=== PATIENT | female | born 1950 | race Caucasian/White ===

== ENCOUNTER 2020-03-19 07:11 | Day surgery (SDC) | payer MEDICARE ==
[2020-03-19] MEDS: Polymyxin B/Trimethoprim 10 ML Bottle EYERT SCH ×4 (07:20→09:24)
[2020-03-19] MEDS: Brimonidine 0.2% Ophth Soln 5 ML Bottle EYERT SCH ×4 (07:25→09:24)
[2020-03-19] MEDS: Phenylephrine 2.5% Ophth Soln 2 ML Bot EYERT SCH ×5 (07:30→09:03)
[2020-03-19] MEDS: Tropicamide 1% Ophth Soln 15 ML Bottle EYERT SCH ×4 (07:35→08:35)
[2020-03-19] MEDS: Tetracaine HCl/PF 0.5% 4 ML Bottle EYEBOTH SCH ×5 (07:41→09:11)
[2020-03-19] MEDS: Lidocaine 1% PF 2 ML SDV INJECT SCH ×2 (07:41→09:12)
[2020-03-19] MEDS: Cefuroxime 10 MG/ML SYRINGE EYERT SCH ×2 (07:41→09:23)
--- NOTE | 2020-03-19 07:41 | PCM.PREANE ---
Preanesthetic Assessment - Procedure Proposed Procedure: right cataract - Anesthesia/Transfusion/Family Hx Anesthesia History: Prior Anesthesia Without Reaction Family History of Anesthesia Reaction: No Transfusion History: No Prior Transfusion(s) - Review of Systems General: No Symptoms Pulmonary: No Symptoms Cardiovascular: No Symptoms Gastrointestinal: No Symptoms Neurological: No Symptoms Other: Reports: Depression - Physical Assessment NPO Status Date: 03/18/20 NPO Status Time: 23:00 Vital Signs: 142/68 63 94% 16 97.8 Height: 5 ft Weight: 52.163 kg ASA Class: 2 Mental Status: Alert & Oriented x3 Airway Class: Mallampati = 1 Dentition: Reports: Normal Dentition Thyro-Mental Finger Breadths: 3 Mouth Opening Finger Breadths: 3 ROM/Head Extension: Full Lungs: Clear to Auscultation, Normal Respiratory Effort Cardiovascular: Regular Rate, Regular Rhythm - Allergies Allergies/Adverse Reactions: Allergies Allergy/AdvReac Type Severity Reaction Status Date / Time No Known Allergies Allergy Verified 03/18/20 13:14 - Blood Blood Available: No - Acknowledgements Anesthesia Type Planned: MAC Pt an Appropriate Candidate for the Planned Anesthesia: Yes Alternatives and Risks of Anesthesia Discussed w Pt/Guardian: Yes Pt/Guardian Understands and Agrees with Anesthesia Plan: Yes PreAnesthesia Questionnaire Cardiovascular History: Reports: High Cholesterol Gastrointestinal History: Reports: GERD Musculoskeletal History: Reports: Back Pain, Chronic Psychiatric History: Reports: Depression - Past Surgical History Female Surgical History: Reports: Hysterectomy - SUBSTANCE USE Tobacco Use Status *Q: Former Tobacco User Tobacco Use Within Last Twelve Months: No Second Hand Smoke Exposure: No Days Per Week of Alcohol Use: 0 Recreational Drug Use History: No - HOME MEDS Home Medications: Home Meds Alendronate Sodium [Fosamax] 70 mg PO Q7D 03/18/20 [History] Calcium Carb/Vitamin D3/Vit K1 [Calcium + D Soft Chewable Tab] 1 tab PO DAILY 03/18/20 [History] Cholecalciferol (Vitamin D3) [Vitamin D3] 5,000 unit PO DAILY 03/18/20 [History] Escitalopram Oxalate [Lexapro] 20 mg PO DAILY 03/18/20 [History] Famotidine 20 mg PO BID 03/18/20 [History] Magnesium Oxide [Magnesium] 400 mg PO DAILY 03/18/20 [History] Mirtazapine 30 mg PO BEDTIME 03/18/20 [History] Rosuvastatin [Crestor] 10 mg PO DAILY 03/18/20 [History] buPROPion HCL [Wellbutrin Xl] 150 mg PO DAILY 03/18/20 [History] traMADol HCl [Tramadol HCl] 50 - 100 mg PO Q6H PRN 03/18/20 [History] traZODone HCl [Trazodone HCl] 100 mg PO BEDTIME 03/18/20 [History] - CURRENT (IN HOUSE) MEDS Current Meds: Current Medications Brimonidine Tartrate (Alphagan 0.2% Ophth Soln) 0 ml EYERT ASDIRECTED BENJAMIN Stop: 03/19/20 18:00 Last Admin: 03/19/20 07:25 Dose: 1 drop Documented by: Cefuroxime Sodium (Zinacef) 0 mg EYERT ASDIRECTED BENJAMIN Stop: 03/19/20 18:00 Lidocaine HCl (Xylocaine-Mpf 1%) 0 ml INJECT ASDIRECTED BENJAMIN Stop: 03/19/20 18:00 Phenylephrine HCl (Gigi-Synephrine 2.5% Ophth Soln) 0 ml EYERT ASDIRECTED BENJAMIN Stop: 03/19/20 18:00 Last Admin: 03/19/20 07:30 Dose: 1 drop Documented by: Pilocarpine HCl (Pilocar 4% Ophth Soln) 0 ml EYERT ASDIRECTED BENJAMIN Stop: 03/19/20 18:00 Polymyxin/Trimethoprim Sulfate (Polytrim Ophth Soln) 0 ml EYERT ASDIRECTED BENJAMIN Stop: 03/19/20 18:00 Last Admin: 03/19/20 07:20 Dose: 1 drop Documented by: Tetracaine HCl (Tetracaine 0.5% Steri-Unit Jo-Ann) 0 ml EYEBOTH ASDIRECTED BENJAMIN Stop: 03/19/20 18:00 Tropicamide (Mydriacyl 1% Ophth Soln) 0 ml EYERT ASDIRECTED BENJAMIN Stop: 03/19/20 18:00 Last Admin: 03/19/20 07:35 Dose: 1 drop Documented by:
[2020-03-19] MEDS: Pilocarpine 4% Ophth Soln 15 ML Bot EYERT SCH ×2 (07:42→09:24)
--- NOTE | 2020-03-19 09:27 | PCM48HPAN ---
Post Anesthesia Note - EVALUATION WITHIN 48HRS OF ANESTHETIC Vital Signs in Normal Range: Yes Patient Participated in Evaluation: Yes Respiratory Function Stable: Yes Airway Patent: Yes Cardiovascular Function Stable: Yes Hydration Status Stable: Yes Pain Control Satisfactory: Yes Nausea and Vomiting Control Satisfactory: Yes Mental Status Recovered: Yes Vital Signs: Last Vital Signs Temp 36.6 C 03/19/20 07:15 Pulse 63 03/19/20 07:15 Resp 16 03/19/20 07:15 BP 142/68 H 03/19/20 07:15 Pulse Ox 94 L 03/19/20 07:15
== END 2020-03-19 09:35 | disposition home or self-care (01) ==
LOC: JD.SDS 07:11
PROVIDERS: ATTEND Ophthalmology
DX: H25.813 Combined forms of age-related cataract, bilateral (principal); F32.9 Major depressive disorder, single episode, unspecified; H43.811 Vitreous degeneration, right eye; H18.453 Nodular corneal degeneration, bilateral; H02.831 Dermatochalasis of right upper eyelid; H02.834 Dermatochalasis of left upper eyelid; H16.223 Keratoconjunctivitis sicca, not specified as Sjogren's, bilateral; Z98.890 Other specified postprocedural states; Z87.891 Personal history of nicotine dependence; Z79.899 Other long term (current) drug therapy
CPT/HCPCS: 66984; J0697; J2001; V2632

== ENCOUNTER 2020-04-16 08:26 | Day surgery (SDC) | payer MEDICARE ==
[~2020-04-16 08:26] MED LIST: Cefuroxime 10 MG/ML SYRINGE EYELF SCH; Lidocaine 1% PF 2 ML SDV INJECT SCH; Pilocarpine 4% Ophth Soln 15 ML Bot EYELF SCH
[2020-04-16] MEDS: Polymyxin B/Trimethoprim 10 ML Bottle EYELF SCH ×3 (08:27→10:12)
[2020-04-16] MEDS: Brimonidine 0.2% Ophth Soln 5 ML Bottle EYELF SCH ×3 (08:35→10:12)
[2020-04-16] MEDS: Phenylephrine 2.5% Ophth Soln 2 ML Bot EYELF SCH ×5 (08:40→09:42)
[2020-04-16] MEDS: Tropicamide 1% Ophth Soln 15 ML Bottle EYELF SCH ×4 (08:45→09:22)
--- NOTE | 2020-04-16 08:50 | PCM.PREANE ---
Preanesthetic Assessment - Procedure Proposed Procedure: Cataract Extraction to Left Eye with IOL - Anesthesia/Transfusion/Family Hx Anesthesia History: Prior Anesthesia Without Reaction Family History of Anesthesia Reaction: No Transfusion History: No Prior Transfusion(s) - Review of Systems General: No Symptoms Pulmonary: No Symptoms (Former Smoker, Quit July of 2019. ) Cardiovascular: No Symptoms Gastrointestinal: No Symptoms Neurological: Numbness, Pre-Existing Deficit Other: Reports: Depression - Physical Assessment NPO Status Date: 04/15/20 NPO Status Time: 18:00 Weight: 52.163 kg ASA Class: 2 Mental Status: Alert & Oriented x3 Airway Class: Mallampati = 2 Dentition: Reports: Dentures Thyro-Mental Finger Breadths: 2 Mouth Opening Finger Breadths: 3 ROM/Head Extension: Full Lungs: Clear to Auscultation, Normal Respiratory Effort Cardiovascular: Regular Rate, Regular Rhythm - Allergies Allergies/Adverse Reactions: Allergies Allergy/AdvReac Type Severity Reaction Status Date / Time Iodine and Iodide Containing Allergy Hives Verified 04/15/20 16:16 Produc - Acknowledgements Anesthesia Type Planned: MAC Pt an Appropriate Candidate for the Planned Anesthesia: Yes Alternatives and Risks of Anesthesia Discussed w Pt/Guardian: Yes Pt/Guardian Understands and Agrees with Anesthesia Plan: Yes PreAnesthesia Questionnaire Cardiovascular History: Reports: High Cholesterol Gastrointestinal History: Reports: GERD Musculoskeletal History: Reports: Back Pain, Chronic Psychiatric History: Reports: Depression - Past Surgical History Female Surgical History: Reports: Hysterectomy - HOME MEDS Home Medications: Home Meds Alendronate Sodium [Fosamax] 70 mg PO Q7D 03/18/20 [History] Calcium Carb/Vitamin D3/Vit K1 [Calcium + D Soft Chewable Tab] 1 tab PO DAILY 03/18/20 [History] Cholecalciferol (Vitamin D3) [Vitamin D3] 5,000 unit PO DAILY 03/18/20 [History] Escitalopram Oxalate [Lexapro] 20 mg PO DAILY 03/18/20 [History] Famotidine 20 mg PO BID 03/18/20 [History] Magnesium Oxide [Magnesium] 400 mg PO DAILY 03/18/20 [History] Mirtazapine 30 mg PO BEDTIME 03/18/20 [History] Rosuvastatin [Crestor] 10 mg PO DAILY 03/18/20 [History] buPROPion HCL [Wellbutrin Xl] 150 mg PO DAILY 03/18/20 [History] traMADol HCl [Tramadol HCl] 50 - 100 mg PO Q6H PRN 03/18/20 [History] traZODone HCl [Trazodone HCl] 100 mg PO BEDTIME 03/18/20 [History] - CURRENT (IN HOUSE) MEDS Current Meds: Current Medications Brimonidine Tartrate (Alphagan 0.2% Ophth Soln) 0 ml EYELF ASDIRECTED BENJAMIN Stop: 04/16/20 18:00 Last Admin: 04/16/20 08:35 Dose: 1 drop Documented by: Cefuroxime Sodium (Zinacef) 0 mg EYELF ASDIRECTED BENJAMIN Stop: 04/16/20 18:00 Lidocaine HCl (Xylocaine-Mpf 1%) 0 ml INJECT ASDIRECTED BENJAMIN Stop: 04/16/20 18:00 Phenylephrine HCl (Gigi-Synephrine 2.5% Ophth Soln) 0 ml EYELF ASDIRECTED BENJAMIN Stop: 04/16/20 18:00 Last Admin: 04/16/20 08:40 Dose: 1 drop Documented by: Pilocarpine HCl (Pilocar 4% Ophth Soln) 0 ml EYELF ASDIRECTED BENJAMIN Stop: 04/16/20 18:00 Polymyxin/Trimethoprim Sulfate (Polytrim Ophth Soln) 0 ml EYELF ASDIRECTED BENJAMIN Stop: 04/16/20 18:00 Last Admin: 04/16/20 08:27 Dose: 1 drop Documented by: Tetracaine HCl (Tetracaine 0.5% Steri-Unit Jo-Ann) 0 ml EYEBOTH ASDIRECTED BENJAMIN Stop: 04/16/20 18:00 Tropicamide (Mydriacyl 1% Ophth Soln) 0 ml EYELF ASDIRECTED BENJAMIN Stop: 04/16/20 18:00 Last Admin: 04/16/20 08:45 Dose: 1 drop Documented by:
[2020-04-16] MEDS: Tetracaine HCl/PF 0.5% 4 ML Bottle EYEBOTH SCH ×4 (09:27→09:48)
--- NOTE | 2020-04-16 09:50 | PCM48HPAN ---
Post Anesthesia Note - EVALUATION WITHIN 48HRS OF ANESTHETIC Vital Signs in Normal Range: Yes Patient Participated in Evaluation: Yes Respiratory Function Stable: Yes Airway Patent: Yes Cardiovascular Function Stable: Yes Hydration Status Stable: Yes Pain Control Satisfactory: Yes Nausea and Vomiting Control Satisfactory: Yes Mental Status Recovered: Yes Vital Signs: Last Vital Signs Temp 36.4 C 04/16/20 08:25 Pulse 56 L 04/16/20 08:25 Resp 16 04/16/20 08:25 BP 143/63 H 04/16/20 08:25 Pulse Ox 93 L 04/16/20 08:25
== END 2020-04-16 10:20 | disposition home or self-care (01) ==
LOC: JD.SDS 08:26
PROVIDERS: ATTEND Ophthalmology
DX: H25.813 Combined forms of age-related cataract, bilateral (principal); H43.811 Vitreous degeneration, right eye; H18.453 Nodular corneal degeneration, bilateral; H02.831 Dermatochalasis of right upper eyelid; H02.834 Dermatochalasis of left upper eyelid; H16.103 Unspecified superficial keratitis, bilateral; H16.223 Keratoconjunctivitis sicca, not specified as Sjogren's, bilateral; F32.9 Major depressive disorder, single episode, unspecified; Z87.891 Personal history of nicotine dependence; Z79.899 Other long term (current) drug therapy
CPT/HCPCS: 66984; C1780; J0697; J2001

== ENCOUNTER 2020-10-16 15:14 | Emergency (ER) | payer MEDICARE, OTHER ==
[2020-10-16] MEDS ORDERED: Sodium Chloride 0.9% 10 ML Syringe FLUSH PRN (15:45)
--- NOTE | 2020-10-16 17:02 | CR ---
Chest: 2 views of the chest were obtained. Comparison: No prior chest x-ray is available, study is compared to prior lung screening protocol CT of 11/05/16. Heart size and mediastinum are within normal limits. Questionable bronchitis is noted throughout the right lung. Lungs otherwise are clear. Scoliosis and degenerative change is noted within the spine. Impression: 1. Possible diffuse right-sided bronchitis. Please correlate with the patient's symptoms. 2. Scoliosis and degenerative change within the spine. Diagnostic code #3
--- NOTE | 2020-10-16 17:04 | EDM.PDOC ---
ED HPI GENERAL MEDICAL PROBLEM - General Chief Complaint: Gastrointestinal Problem Stated Complaint: NEED FLUIDS Time Seen by Provider: 10/16/20 15:35 Source of Information: Reports: Patient, RN Notes Reviewed History Limitations: Reports: No Limitations - History of Present Illness INITIAL COMMENTS - FREE TEXT/NARRATIVE: Patient is a 69-year-old female presenting to the emergency department with concerns that she may need some IV fluids. She was diagnosed as Covid positive on October 02 and reports that she has had intermittent vomiting and diarrhea since that time. She states that she does not vomit or have diarrhea every day but she has had it occasionally. She denies any respiratory complaints or fevers. She does not have a cough or feel short of breath. Denies dizziness upon standing. She was seen at the [place] [facility] prior to coming here and they sent her here for IV fluids. On triage, oxygen saturations was found to be slightly low at 93%, however review of her previous visits indicate that this is her normal oxygen saturation. Vital signs are otherwise normal. Blood pressure 115/71, pulse rate 53, temperature 99.0, respiratory rate 18. - Related Data Allergies Allergy/AdvReac Type Severity Reaction Status Date / Time Iodine and Iodide Containing Allergy Hives Verified 10/16/20 15:23 Produc Home Meds: Home Meds Alendronate Sodium [Fosamax] 70 mg PO Q7D 03/18/20 [History] Calcium Carb/Vitamin D3/Vit K1 [Calcium + D Soft Chewable Tab] 1 tab PO DAILY 03/18/20 [History] Cholecalciferol (Vitamin D3) [Vitamin D3] 5,000 unit PO DAILY 03/18/20 [History] Escitalopram Oxalate [Lexapro] 20 mg PO DAILY 03/18/20 [History] Famotidine 20 mg PO BID 03/18/20 [History] Magnesium Oxide [Magnesium] 400 mg PO DAILY 03/18/20 [History] Mirtazapine 30 mg PO BEDTIME 03/18/20 [History] Rosuvastatin [Crestor] 10 mg PO DAILY 03/18/20 [History] buPROPion HCL [Wellbutrin Xl] 150 mg PO DAILY 03/18/20 [History] traMADol HCl [Tramadol HCl] 50 - 100 mg PO Q6H PRN 03/18/20 [History] traZODone HCl [Trazodone HCl] 100 mg PO BEDTIME 03/18/20 [History] Ondansetron [Zofran ODT] 4 mg PO Q6H PRN #10 tab.dis 10/16/20 [Rx] Past Medical History - Past Health History Medical/Surgical History: Denies Medical/Surgical History Cardiovascular History: Reports: High Cholesterol Gastrointestinal History: Reports: GERD Musculoskeletal History: Reports: Back Pain, Chronic Psychiatric History: Reports: Depression - Past Surgical History Female Surgical History: Reports: Hysterectomy Social & Family History - Tobacco Use Tobacco Use Status *Q: Never Tobacco User - Recreational Drug Use Recreational Drug Use: No ED ROS GENERAL - Review of Systems Review Of Systems: See Below Constitutional: Reports: No Symptoms. Denies: Fever, Chills, Weakness HEENT: Reports: No Symptoms Respiratory: Reports: No Symptoms Cardiovascular: Reports: No Symptoms Endocrine: Reports: No Symptoms GI/Abdominal: Reports: Diarrhea, Nausea, Vomiting. Denies: Abdominal Pain : Reports: No Symptoms. Denies: Dysuria Musculoskeletal: Reports: No Symptoms Skin: Reports: No Symptoms Neurological: Reports: No Symptoms Psychiatric: Reports: No Symptoms Hematologic/Lymphatic: Reports: No Symptoms Immunologic: Reports: No Symptoms ED EXAM, GI/ABD - Physical Exam Exam: See Below Exam Limited By: No Limitations General Appearance: Alert, WD/WN, No Apparent Distress Respiratory/Chest: No Respiratory Distress, Lungs Clear, Normal Breath Sounds, No Accessory Muscle Use, Chest Non-Tender Cardiovascular: Normal Peripheral Pulses, Regular Rate, Rhythm, No Edema, No Gallop, No JVD, No Murmur, No Rub GI/Abdominal Exam: Normal Bowel Sounds, Soft, Non-Tender, No Organomegaly, No Distention, No Abnormal Bruit, No Mass, Pelvis Stable Neurological: Alert, Oriented, CN II-XII Intact, Normal Cognition, Normal Gait, Normal Reflexes, No Motor/Sensory Deficits Psychiatric: Normal Affect, Normal Mood Skin Exam: Warm, Dry, Intact, Normal Color, No Rash Course - Vital Signs Last Recorded V/S: Last Vital Signs Temp 99 F 10/16/20 15:21 Pulse 53 L 10/16/20 15:21 Resp 18 10/16/20 15:21 BP 115/71 10/16/20 15:21 Pulse Ox 92 L 10/16/20 15:51 Orthostatic Blood Pressure [ 105/68 Standing] Orthostatic Blood Pressure [ 104/72 Sitting] Orthostatic Blood Pressure [ 109/68 Supine] - Orders/Labs/Meds Orders: Active Orders 24 hr Category Date Time Status Peripheral IV Insertion Adult [OM.PC] Stat Oth 10/16/20 15:45 Ordered Labs: Laboratory Tests 10/16/20 10/16/20 10/16/20 Range/Units 16:59 16:59 16:59 WBC 3.78 L (3.98-10.04) K/mm3 RBC 4.34 (3.98-5.22) M/mm3 Hgb 11.7 (11.2-15.7) gm/dl Hct 36.8 (34.1-44.9) % MCV 84.8 D (79.4-94.8) fl MCH 27.0 (25.6-32.2) pg MCHC 31.8 L (32.2-35.5) g/dl RDW Std Deviation 42.1 (36.4-46.3) fL Plt Count 443 H D (182-369) K/mm3 MPV 9.2 L (9.4-12.3) fl Neut % (Auto) 76.7 H (34.0-71.1) % Lymph % (Auto) 11.1 L (19.3-51.7) % [place] % (Auto) 6.1 (4.7-12.5) % Eos % (Auto) 0.3 L (0.7-5.8) Baso % (Auto) 0.5 (0.1-1.2) % Neut # (Auto) 2.90 (1.56-6.13) K/mm3 Lymph # (Auto) 0.42 L (1.18-3.74) K/mm3 [place] # (Auto) 0.23 L (0.24-0.36) K/mm3 Eos # (Auto) 0.01 L (0.04-0.36) K/mm3 Baso # (Auto) 0.02 (0.01-0.08) K/mm3 Manual Slide Review Abnormal smear Sodium 140 (136-145) mEq/L Potassium 4.0 (3.5-5.1) mEq/L Chloride 101 (98-107) mEq/L Carbon Dioxide 27 (21-32) mEq/L Anion Gap 16.0 H (5-15) BUN 20 H (7-18) mg/dL Creatinine 1.0 (0.55-1.02) mg/dL Est Cr Clr Drug Dosing 37.06 mL/min Estimated GFR (MDRD) 55 (>60) mL/min BUN/Creatinine Ratio 20.0 H (14-18) Glucose 89 (70-99) mg/dL Calcium 8.7 (8.5-10.1) mg/dL Magnesium 1.8 (1.8-2.4) mg/dL Total Bilirubin 0.4 (0.2-1.0) mg/dL AST 134 H (15-37) U/L ALT 42 (14-59) U/L Alkaline Phosphatase 92 (46-116) U/L Total Protein 7.5 (6.4-8.2) g/dl Albumin 2.9 L (3.4-5.0) g/dl Globulin 4.6 gm/dL Albumin/Globulin Ratio 0.6 L (1-2) Meds: Medications Discontinued Medications Generic Name Dose Route Start Last Admin Trade Name Freq PRN Reason Stop Dose Admin Sodium Chloride 10 ml 10/16/20 15:45 Sodium Chloride 0.9% 10 Ml Syringe FLUSH ASDIRECTED PRN Keep Vein Open - Re-Assessments/Exams Free Text/Narrative Re-Assessment/Exam: 10/16/20 18:13 Hematology was significant for WBC slightly low at 3.78, anion gap minimally elevated at 16.0, BUN 20, AST 134. Blood work was otherwise unremarkable. Chest x-ray shows possible bronchitis if her symptoms correlate. Patient has had no cough,shortness of breath, or wheezing. Discussed with patient that she is mildly dehydrated. Discussed possibility of IV fluids, however she has not been vomiting today and she would just like to pursue oral intake. I will write a prescription for Zofran for nausea. Recommend Gatorade and Powerade for a oral rehydration. Discussed return precautions. Discharge instructions as documented. Departure - Departure Time of Disposition: 18:13 Disposition: Home, Self-Care 01 Condition: Good Clinical Impression: Vomiting, Diarrhea - Discharge Information *PRESCRIPTION DRUG MONITORING PROGRAM REVIEWED*: No *COPY OF PRESCRIPTION DRUG MONITORING REPORT IN PATIENT ASIA: No Prescriptions: Ondansetron [Zofran ODT] 4 mg PO Q6H PRN #10 tab.dis PRN Reason: Nausea/Vomiting Instructions: Nausea and Vomiting, Adult, [id number] Referrals: Ben Cantor MD [Primary Care Provider] - Forms: ED Department Discharge Additional Instructions: You were seen in the emergency department today for evaluation with regards to intermittent vomiting and diarrhea since your Covid diagnosis on October 02. Blood work was completed. You were very mildly dehydrated. Your electrolytes are normal. IV fluids were offered, however since you are not vomiting today you elected to pursue oral rehydration. Recommend Gatorade and Powerade for fluid replacement. I have sent a prescription for Zofran for nausea to your pharmacy. Use this as prescribed for nausea. If you should experience any new or worsening symptoms, please do not hesitate to return to the ER for reevaluation. Sepsis Event Note (ED) - Evaluation Sepsis Screening Result: No Definite Risk - Focused Exam Vital Signs: Vital Signs Temp Pulse Resp BP Pulse Ox Pulse Ox 10/16/20 15:51 92 L 10/16/20 15:21 99 F 53 L 18 115/71 93 L - My Orders Last 24 Hours: My Active Orders 10/16/20 15:45 Peripheral IV Insertion Adult [OM.PC] Stat - Assessment/Plan Last 24 Hours: My Active Orders 10/16/20 15:45 Peripheral IV Insertion Adult [OM.PC] Stat
== END 2020-10-16 18:20 | disposition home or self-care (01) ==
LOC: JD.ED 15:14
DX: R11.2 Nausea with vomiting, unspecified (principal); R19.7 Diarrhea, unspecified; Z91.041 Radiographic dye allergy status
CPT/HCPCS: 36415; 71046; 71046-26; 80053; 83735; 85025; 99283; 99284-25

== ENCOUNTER 2021-06-18 09:59 | Day surgery (SDC) | payer MEDICARE, OTHER ==
[~2021-06-18 09:59] MED LIST changes: -Cefuroxime 10 MG/ML SYRINGE EYELF SCH; +Lactated Ringers 1,000 ML IV SCH; -Lidocaine 1% PF 2 ML SDV INJECT SCH; +Lidocaine 1%/Sod Bicarbonate in NS 8.4% 1 ML Syringe IDERM PRN; -Pilocarpine 4% Ophth Soln 15 ML Bot EYELF SCH; +Sodium Chloride 0.9% 10 ML Syringe FLUSH SCH
[2021-06-18] MEDS ORDERED: Bupivacaine 0.25% 10 ML SDV ONE (11:21)
[2021-06-18] MEDS ORDERED: Lidocaine 1% 30 ML SDV ONE (11:21)
[2021-06-18] MEDS ORDERED: fentaNYL 100 MCG/2 ML SDV ONE (12:00)
[2021-06-18] MEDS ORDERED: Propofol 200 MG/20 ML SDV ONE (12:00)
[2021-06-18] MEDS ORDERED: Lidocaine 1% 4 ML ONE (12:01)
== END 2021-06-18 13:40 | disposition home or self-care (01) ==
LOC: JD.SDS 09:59
PROVIDERS: ATTEND Orthopaedic Surgery
DX: G56.11 Other lesions of median nerve, right upper limb (principal); G56.01 Carpal tunnel syndrome, right upper limb; E78.00 Pure hypercholesterolemia, unspecified; M81.0 Age-related osteoporosis without current pathological fracture; K21.9 Gastro-esophageal reflux disease without esophagitis; G25.81 Restless legs syndrome; Z79.899 Other long term (current) drug therapy; Z88.8 Allergy status to other drugs, medicaments and biological substances; Z98.890 Other specified postprocedural states; Z87.891 Personal history of nicotine dependence
CPT/HCPCS: 64721; J2704; J3010; J3490; J7120; 01810; 99100

== ENCOUNTER 2021-07-31 10:58 | Day surgery (SDC) | payer MEDICARE, OTHER ==
[~2021-07-31 10:58] MED LIST changes: +Sodium Chloride 0.9% 10 ML Syringe FLUSH PRN
[2021-07-31] MEDS ORDERED: Bupivacaine 0.25% 10 ML SDV ONE (11:02)
[2021-07-31] MEDS ORDERED: Lidocaine 1% 30 ML SDV ONE (11:02)
[2021-07-31] MEDS ORDERED: Lidocaine 1% 4 ML ONE (11:24)
[2021-07-31] MEDS ORDERED: fentaNYL 100 MCG/2 ML SDV ONE (11:25)
[2021-07-31] MEDS ORDERED: Propofol 200 MG/20 ML SDV ONE (11:25)
== END 2021-07-31 12:55 | disposition home or self-care (01) ==
LOC: JD.SDS 10:58
PROVIDERS: ATTEND Orthopaedic Surgery
DX: G56.12 Other lesions of median nerve, left upper limb (principal); G56.02 Carpal tunnel syndrome, left upper limb; M81.0 Age-related osteoporosis without current pathological fracture; E78.00 Pure hypercholesterolemia, unspecified; Z87.891 Personal history of nicotine dependence; Z98.890 Other specified postprocedural states; Z88.8 Allergy status to other drugs, medicaments and biological substances; Z79.899 Other long term (current) drug therapy
CPT/HCPCS: 64721; J2704; J3010; J3490; J7120; 01810; 99100

== ENCOUNTER 2022-07-10 17:27 | Observation (INO) | payer MEDICARE ==
[2022-07-10] MEDS ORDERED: Morphine 4 MG/ML Syringe IVPUSH ONE (18:41)
[2022-07-10] MEDS ORDERED: Piperacillin/Tazobactam 4.5 GM in Sodium Chloride 0.9% 100 ML IV ONE (18:41)
[2022-07-10] MEDS ORDERED: Sodium Chloride 0.9% 1,000 ML IV ONE (18:41)
[2022-07-10] MEDS ORDERED: Lidocaine 1% 30 ML SDV ONE (19:57)
[2022-07-10] MEDS ORDERED: Bupivacaine 0.5%/EPINEPHrine 1:200,000 50 ML MDV ONE (19:57)
[2022-07-10] MEDS ORDERED: fentaNYL 100 MCG/2 ML SDV IVPUSH PRN (20:00)
[2022-07-10] MEDS ORDERED: Ondansetron 4 MG/2 ML SDV IVPUSH PRN ×2 (20:00→22:19)
[2022-07-10] MEDS ORDERED: HYDROmorphone 0.5 MG/0.5 ML Syringe IVPUSH PRN ×2 (20:00→22:21)
[2022-07-10] MEDS ORDERED: Lidocaine 1% 2 ML ONE (20:08)
[2022-07-10] MEDS ORDERED: Ondansetron 4 MG/2 ML SDV ONE (20:08)
[2022-07-10] MEDS ORDERED: Rocuronium 50 MG/5 ML Vial ONE (20:08)
[2022-07-10] MEDS ORDERED: Ketorolac 15 MG/ML SDV ONE (20:08)
[2022-07-10] MEDS ORDERED: Propofol 200 MG/20 ML SDV ONE (20:08)
[2022-07-10] MEDS ORDERED: fentaNYL 100 MCG/2 ML SDV ONE (20:09)
[2022-07-10] MEDS ORDERED: Sugammadex Sodium 200 MG/2 ML VIAL ONE (21:04)
[2022-07-10] MEDS ORDERED: oxyCODONE 5 MG Tab PO PRN (22:20)
[2022-07-10] MEDS ORDERED: Acetaminophen 325 MG Tab PO PRN (22:28)
[2022-07-10] MEDS ORDERED: Sodium Chloride 0.9% 1,000 ML IV SCH (22:30)
[2022-07-10] MEDS: Piperacillin/Tazobactam 4.5 GM in Sodium Chloride 0.9% 100 ML IV SCH (23:36)
[2022-07-11] MEDS ORDERED: Enoxaparin 30 MG/0.3 ML Syringe SUBCUT SCH (09:00)
[2022-07-11] MEDS: Piperacillin/Tazobactam 4.5 GM in Sodium Chloride 0.9% 100 ML IV SCH (09:09)
== END 2022-07-11 12:24 | disposition home or self-care (01) ==
LOC: JD.ED 17:27 → JD.SDS 19:51 → JD.MS 22:15
PROVIDERS: ADMIT Surgery; ATTEND Surgery
DX: K35.80 Unspecified acute appendicitis (principal); K44.9 Diaphragmatic hernia without obstruction or gangrene; E78.00 Pure hypercholesterolemia, unspecified; M81.0 Age-related osteoporosis without current pathological fracture; M54.9 Dorsalgia, unspecified; G89.29 Other chronic pain; K21.9 Gastro-esophageal reflux disease without esophagitis; F32.A Depression, unspecified; Z79.899 Other long term (current) drug therapy; Z98.890 Other specified postprocedural states; Z91.041 Radiographic dye allergy status; Z88.8 Allergy status to other drugs, medicaments and biological substances; Z87.891 Personal history of nicotine dependence
CPT/HCPCS: 44970; 74176; 88304; 96361; 96365; 96375; 99285; A9270; J1885; J2270; J2405; J2543; J2704; J3010; J3490; J7030; 00840; 96366; 96376; 99100; G0378